=== PATIENT | female | born 1975 | race Caucasian/White ===

== ENCOUNTER 2017-05-29 15:02 | Emergency (ER) | payer MEDICARE, MEDICAID ==
--- OUTSIDE RECORDS SUMMARY | 2017-05-29 15:09 | XMS REPORT ---
Author [facility] Address [address] [place] [address] Care Team Providers Care Mason Tender Name Role Phone GABE SAL Unavailable PROBLEMS Type Condition ICD9-CM Code [id number] Code Onset Dates Condition Status SNOMED Code Problem Cerebrovascular accident (CVA), unspecified mechanism I63.9 Active 325774073 Problem Type 2 diabetes mellitus with other circulatory complications E11.59 Active 89187046 Problem Diabetic mononeuropathy associated with type 2 diabetes mellitus E11.41 Active 135038243 Problem Axillary hidradenitis suppurativa L73.2 Active 961558009 Problem [facility] current use of insulin Z79.4 Active 562463327 Problem Cervical vertebral fusion M43.22 Active 989363784 ALLERGIES Unknown Allergies SOCIAL HISTORY No smoking Hx information available PLAN OF CARE VITAL SIGNS MEDICATIONS Unknown Medications RESULTS No Results PROCEDURES No Known procedures IMMUNIZATIONS No Known Immunizations
--- OUTSIDE RECORDS SUMMARY | 2017-05-29 15:09 | XMS REPORT ---
Demographics Preferred Language Botswanan Marital Status Never Zoroastrianism Affiliation Unknown Race Other Race Ethnic Group Unknown Author Author Aurora Gallegos [facility] Address [address] [place], [place] [id number] Care Team Providers Care Incinerator Attendant Name Role Phone Aurora Gallegos PCP Unavailable Allergies and Adverse Reactions Name Reaction Notes No known drug allergy Plan of Treatment Planned Activity Comments Planned Date Planned Time Plan/Goal HEMOGLOBIN A1C 09/27/2016 12:00 AM CMP 09/27/2016 12:00 AM CBC W/ AUTO DIFF (RFLX MAN DIFF IF IND). 09/27/2016 12:00 AM LIPID PANEL 09/27/2016 12:00 AM heart murmur, h/o 1x meth use, s/p CVA Medications Active Name Start Date Estimated Completion Date SIG Comments Lantus Solostar 100 unit/mL (3 mL) subcutaneous insulin pen Inject 20 units q AM Xarelto 20 mg oral tablet take 1 tablet (20 mg) by oral route once daily with the evening meal gabapentin 300 mg oral capsule 09/27/2016 09/22/2017 take 1 capsule (300 mg) by oral route 3 times per day for 30 days amitriptyline 25 mg oral tablet 09/27/2016 09/22/2017 take 1 tablet (25 mg) by oral route once daily at bedtime for 30 days Humalog KwikPen 100 unit/mL subcutaneous insulin pen 09/27/2016 09/22/2017 Inject 5 units sub-q sliding scale 3 times a day lisinopril 10 mg oral tablet 09/27/2016 03/26/2017 take 1 tablet (10 mg) by oral route once daily for 30 days Problem List Not available. Vital Signs Date Time BP-Sys(mm[Hg] BP-[place](mm[Hg]) HR(bpm) RR(rpm) Temp WT HT HC BMI BSA BMI Percentile O2 Sat(%) 09/27/2016 4:10:00 PM 158 mmHg 89 mmHg 114 bpm 22 rpm 97.9 F 153 lbs 62 in 27.98 kg/m2 1.74 m2 97 % Social History Name Description Comments Tobacco Never smoker History of Procedures Not available. Results Summary Not available. History Of Immunizations Not available. 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 History of Encounters Visit Date Visit Type Provider 09/27/2016 Office visit Aurora Glalegos MD
--- OUTSIDE RECORDS SUMMARY | 2017-05-29 15:09 | XMS REPORT ---
Author [facility] Address [address] [place] [address] Care Team Providers Care Mounter Clarinets Name Role Phone GABE SAL Unavailable PROBLEMS Type Condition ICD9-CM Code [id number]-[id number] Code Onset Dates Condition Status SNOMED Code Problem Cerebrovascular accident (CVA), unspecified mechanism I63.9 Active 506187693 Problem Type 2 diabetes mellitus with other circulatory complications E11.59 Active 86384269 Problem Diabetic mononeuropathy associated with type 2 diabetes mellitus E11.41 Active 731510168 Problem Axillary hidradenitis suppurativa L73.2 Active 775115302 Problem [facility] current use of insulin Z79.4 Active 036417157 Problem Cervical vertebral fusion M43.22 Active 204297937 ALLERGIES Unknown Allergies SOCIAL HISTORY No smoking Hx information available PLAN OF CARE VITAL SIGNS MEDICATIONS Unknown Medications RESULTS No Results PROCEDURES No Known procedures IMMUNIZATIONS No Known Immunizations
--- OUTSIDE RECORDS SUMMARY | 2017-05-29 15:09 | XMS REPORT ---
Author Author Aurora Gallegos Organization [facility] Address [address] [place], [place] [address] Care Team Providers Care Manual Lathe Machinist Name Role Phone Aurora Gallegos PCP Unavailable Allergies and Adverse Reactions Name Reaction Notes morphine PENICILLINS Protonix SULFA (SULFONAMIDES) Plan of Treatment Planned Activity Comments Planned Date Planned Time Plan/Goal heart murmur, h/o 1x meth use, s/p CVA Medications Active Name Start Date Estimated Completion Date SIG Comments Lantus Solostar 100 unit/mL (3 mL) subcutaneous insulin pen Inject 20 units q AM gabapentin 300 mg oral capsule 09/27/2016 09/22/2017 take 1 capsule (300 mg) by oral route 3 times per day for 30 days amitriptyline 25 mg oral tablet 09/27/2016 09/22/2017 take 1 tablet (25 mg) by oral route once daily at bedtime for 30 days lisinopril 10 mg oral tablet 09/27/2016 03/26/2017 take 1 tablet (10 mg) by oral route once daily for 30 days Novolog Flexpen 100 unit/mL subcutaneous insulin pen 09/29/2016 09/24/2017 inject 5 units Sub-q with sliding scale TID for 30 days Xarelto 20 mg oral tablet 10/13/2016 04/11/2017 take 1 tablet (20 mg) by oral route once daily with the evening meal for 30 days Discontinued Name Start Date Discontinued Date SIG Comments Humalog KwikPen 100 unit/mL subcutaneous insulin pen 09/27/2016 09/29/2016 Inject 5 units sub-q sliding scale 3 times a day Problem List Description Status Onset Chronic kidney disease, stage 3 Active 10/17/2016 Vital Signs Date Time BP-Sys(mm[Hg] BP-Ivan[place](mm[Hg]) HR(bpm) RR(rpm) Temp WT HT HC BMI BSA BMI Percentile O2 Sat(%) 10/17/2016 9:25:00 AM 148 mmHg 85 mmHg 114 bpm 20 rpm 96.8 F 158 lbs 62 in 28.90 kg/m2 1.77 m2 97 % 09/27/2016 4:10:00 PM 158 mmHg 89 mmHg 114 bpm 22 rpm 97.9 F 153 lbs 62 in 27.9838 kg/m 1.7424 m 97 % Social History Name Description Comments Tobacco Never smoker History of Procedures Date Ordered Description Order Status 09/27/2016 12:00 AM ROUTINE VENIPUNCTURE Reviewed 09/27/2016 12:00 AM GLYCOSYLATED HEMOGLOBIN TEST Reviewed 09/27/2016 12:00 AM COMPREHEN METABOLIC PANEL Reviewed 09/27/2016 12:00 AM COMPLETE CBC W/AUTO DIFF WBC Reviewed 09/27/2016 12:00 AM LIPID PANEL Reviewed Results Summary Data and Description Results 09/27/2016 5:10 PM WBC 10.1 RBC 4.20 HGB 8.80 g/dLHCT 30.40 %MCV 72.0 fLMCH 21.0 pgMCHC 28.90 g/dLRDW SD 43 RDW CV 16.60 %MPV 11.60 fLPLT 318 NRBC# 0.00 NRBC% 0.0 %NEUT 60.80 %%LYMP 26.40 %%MONO 8.60 %%EOS 3.10 %%BASO 0.80 %#NEUT 6.14 #LYMP 2.66 #MONO 0.87 #EOS 0.31 #BASO 0.08 MANUAL DIFF NOT IND HGB A1C > 14.0 %Est Avg Glucose 380.9 mg/dLGLUCOSE 174.0 mg/dLSODIUM 138.0 mmol/ LPOTASSIUM 4.10 mmol/LCHLORIDE 101.0 mmol/LCO2 26.0 mmol/LBUN 31.0 mg/ dLCREATININE 1.70 mg/dLSGOT/AST 19.0 IU/LSGPT/ALT 24.0 IU/LALK PHOS 118.0 IU/ LTOTAL PROTEIN 6.30 g/dLALBUMIN 3.50 g/dLTOTAL BILI 0.20 mg/dLCALCIUM 9.20 mg/ dLAGE 39 GFR NonAA 33 GFR AA 40 eGFR 33 eGFR AA* 40 TRIGLYCERIDES 309.0 mg/ dLCHOLESTEROL 304.0 mg/dLHDL 38.0 mg/dLTOT CHOL/HDL 8.0 LDL (CALC) 204.0 mg/dL History Of Immunizations Not available. History of Past Illness Name Date of Onset Comments Closed head injury Hypertension CVA (cerebral vascular accident) 02/03/2016 left MCA distributionCarotid US normalHypercoagulable state labs drawn UTI (lower urinary tract infection) E.coli treated with cipro Hyperlipidemia 01/31/16: chol 222, tri 308, HDL 28, LDL 132, supposed to be on atorvastatin 20mg Cerebral palsy Aphasia Myocardial infarct, old Echo 01/2016: EF 55%, thrombus in left ventricular apex Bipolar disorder Schizophrenia Abnormal EKG 01/2016 Azotemia Internal carotid artery stenosis, bilateral 01/2016 Type 2 diabetes mellitus with diabetic neuropathy, with long-term current use of insulin A1C from 01/2016 was 11.5% Detached Retina Chronic kidney disease, stage 3 10/17/2016 Type 2 diabetes mellitus with diabetic mononeuropathy Sep 27 2016 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
--- OUTSIDE RECORDS SUMMARY | 2017-05-29 15:10 | XMS REPORT ---
Author [facility] Address [address] [place] [address] Care Team Providers Care Launch Leader Name Role Phone AGBE SAL Unavailable PROBLEMS Type Condition ICD9-CM Code ZIP70-TQ Code Onset Dates Condition Status SNOMED Code Problem Cerebrovascular accident (CVA), unspecified mechanism I63.9 Active 847901783 Problem Type 2 diabetes mellitus with other circulatory complications E11.59 Active 27210285 Problem Diabetic mononeuropathy associated with type 2 diabetes mellitus E11.41 Active 796497587 Problem Axillary hidradenitis suppurativa L73.2 Active 840998067 Problem shelter current use of insulin Z79.4 Active 035940583 Problem Cervical vertebral fusion M43.22 Active 796047232 ALLERGIES Unknown Allergies SOCIAL HISTORY No smoking Hx information available PLAN OF CARE VITAL SIGNS MEDICATIONS Unknown Medications RESULTS No Results PROCEDURES No Known procedures IMMUNIZATIONS No Known Immunizations
--- OUTSIDE RECORDS SUMMARY | 2017-05-29 15:10 | XMS REPORT ---
Author [facility] Address [address] [place] [address] Care Team Providers Care Hi Low Truck Driver Name Role Phone GABE SAL Unavailable PROBLEMS Type Condition ICD9-CM Code [id number] Code Onset Dates Condition Status SNOMED Code Problem Cerebrovascular accident (CVA), unspecified mechanism I63.9 Active 196347565 Problem Type 2 diabetes mellitus with other circulatory complications E11.59 Active 80765783 Problem Diabetic mononeuropathy associated with type 2 diabetes mellitus E11.41 Active 314080098 Problem Axillary hidradenitis suppurativa L73.2 Active 311409856 Problem care home current use of insulin Z79.4 Active 847873103 Problem Cervical vertebral fusion M43.22 Active 025617288 ALLERGIES Unknown Allergies SOCIAL HISTORY No smoking Hx information available PLAN OF CARE VITAL SIGNS MEDICATIONS Medication Instructions Dosage Frequency Start Date End Date Duration Status Xarelto 20 mg Orally Once a day 1 tablet with food 24h Active RESULTS No Results PROCEDURES No Known procedures IMMUNIZATIONS No Known Immunizations
--- OUTSIDE RECORDS SUMMARY | 2017-05-29 15:10 | XMS REPORT ---
Author Author GABE SAL [facility] Address [address] [place] [address] Care Team Providers Care Bank Officer Name Role Phone GABE SAL Unavailable PROBLEMS Type Condition ICD9-CM Code [id number] Code Onset Dates Condition Status SNOMED Code Problem Cervical vertebral fusion M43.22 Active 469798101 Problem Hypomagnesemia E83.42 Active 705469998 Problem Transient cerebral ischemia, unspecified type G45.9 Active 732889005 Problem Type 2 diabetes mellitus with diabetic polyneuropathy E11.42 Active 88964281 Problem Type 2 diabetes mellitus with other circulatory complications E11.59 Active 02590199 Problem Cerebrovascular accident (CVA), unspecified mechanism I63.9 Active 890536584 Problem Type 2 diabetes mellitus with unspecified diabetic retinopathy with macular edema E11.311 Active 79460865 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
--- OUTSIDE RECORDS SUMMARY | 2017-05-29 15:10 | XMS REPORT ---
Author [facility] Address [address] [place] [address] Care Team Providers Care Tarp Repairer Name Role Phone GABE SAL Unavailable PROBLEMS Type Condition ICD9-CM Code FFF51-[id number] Code Onset Dates Condition Status SNOMED Code Problem Cerebrovascular accident (CVA), unspecified mechanism I63.9 Active 411267073 Problem Type 2 diabetes mellitus with other circulatory complications E11.59 Active 91160280 Problem Diabetic mononeuropathy associated with type 2 diabetes mellitus E11.41 Active 899176498 Problem Axillary hidradenitis suppurativa L73.2 Active 487313889 Problem retirement current use of insulin Z79.4 Active 509650355 Problem Cervical vertebral fusion M43.22 Active 696758810 ALLERGIES Unknown Allergies SOCIAL HISTORY No smoking Hx information available PLAN OF CARE VITAL SIGNS MEDICATIONS Unknown Medications RESULTS No Results PROCEDURES No Known procedures IMMUNIZATIONS No Known Immunizations
--- OUTSIDE RECORDS SUMMARY | 2017-05-29 15:10 | XMS REPORT ---
Author Author [facility]ABE [facility] Address [address] [place] [address] Care Team Providers Care Survey Associate Name Role Phone GABE SAL Unavailable PROBLEMS Type Condition ICD9-CM Code LFL25-VX Code Onset Dates Condition Status SNOMED Code Assessment Diabetic mononeuropathy associated with type 2 diabetes mellitus E11.41 Mar, Active 274035164 Problem Cerebrovascular accident (CVA), unspecified mechanism I63.9 Active 336380989 Problem Type 2 diabetes mellitus with other circulatory complications E11.59 Active 11913027 Problem Diabetic mononeuropathy associated with type 2 diabetes mellitus E11.41 Active 897943471 Problem Axillary hidradenitis suppurativa L73.2 Active 694353835 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 Active 034173993 Problem Cervical vertebral fusion M43.22 Active 882968568 ALLERGIES Substance Reaction Event Type Date Status Sulfamethoxazole-Trimethoprim nausea,vomiting Drug Allergy Mar, Active Oxycodone HCl nausea,vomiting Drug Allergy Mar, Active Morphine Sulfate nausea Drug Allergy Mar, Active Codeine Sulfate nausea, vomiting Drug Allergy Mar, Active Cipro nausea,vomiting Drug Allergy Mar, Active anesthiesa vomiting Non Drug Allergy Mar, Active paper tape skin rash Non Drug Allergy Mar, Active SOCIAL HISTORY No smoking Hx information available PLAN OF CARE VITAL SIGNS Height 62 in 2016-04-18 Weight 158 lbs 2016-04-18 Heart Rate 86 bpm 2016-04-18 Respiratory Rate 18 2016-04-18 BMI 28.90 kg/m2 2016-04-18 Blood pressure systolic 118 mmHg 2016-04-18 Blood pressure diastolic 82 mmHg 2016-04-18 MEDICATIONS Medication Instructions Dosage Frequency Start Date End Date Duration Status Xarelto 20 MG Orally Once a day 1 tablet with food 24h Active Cyclobenzaprine HCl 10 MG Orally Three times a day 1 tablet 8h Active Sulindac 200 MG Orally Twice a day 1 tablet with food 12h Active Lantus SoloStar 100 UNIT/ML Active Omeprazole 40 MG Orally Once a day 1 capsule 24h Active Gabapentin 300 MG Orally Three times a day 1 capsule 8h Active Amitriptyline HCl 25 MG Orally Once a day 1 tablet 24h Active Hibiclens 4 % Wash entire body twice weekly and rinse Mar, Mar, 6 months Active Humalog 100 UNIT/ML Active RESULTS No Results PROCEDURES Procedure Date Ordered Related Diagnosis Body Site [facility] VISIT ESTABLISHED PATIENT Apr 18, 2016 Office Visit, Est Pt., Level 3 Apr 18, 2016 IMMUNIZATIONS No Known Immunizations
--- OUTSIDE RECORDS SUMMARY | 2017-05-29 15:12 | XMS REPORT ---
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 Z79.4 Active 763316059 Problem Cervical vertebral fusion M43.22 Active 649991927 Problem Transient cerebral ischemia, unspecified type G45.9 Active 249917980 Problem Hypomagnesemia E83.42 Active 198402896 Problem Cerebrovascular accident (CVA), unspecified mechanism I63.9 Active 555665970 Problem Type 2 diabetes mellitus with other circulatory complications E11.59 Active 20031802 Problem Type 2 diabetes mellitus with diabetic polyneuropathy E11.42 Active 27413512 Problem Type 2 diabetes mellitus with unspecified diabetic retinopathy with macular edema E11.311 Active 09910183 ALLERGIES Unknown Allergies SOCIAL HISTORY No smoking Hx information available PLAN OF CARE VITAL SIGNS MEDICATIONS Medication Instructions Dosage Frequency Start Date End Date Duration Status Humalog 100 UNIT/ML Subcutaneous per sliding scale three times a day 5 units Active Lantus SoloStar 100 UNIT/ML Subcutaneous daily in the morning 20 units Active RESULTS No Results PROCEDURES No Known procedures IMMUNIZATIONS No Known Immunizations
--- OUTSIDE RECORDS SUMMARY | 2017-05-29 15:12 | XMS REPORT | Continuity of Care Document ---
Author Author [facility] Organization [facility] Address [address] [place] [address] Phone Unavailable Care Team Providers Care Clamp Carrier Operator Name Role Phone SHLOMO HILL MD PCP Advance Directives Directive Response Recorded Date/Time Advance Directives No 04/09/16 9:28pm Advance Directive on File No 04/09/16 9:15pm Durable POA for HC No 04/09/16 9:28pm Power of Printing Assistant No 04/09/16 9:28pm Organ Donor No 04/09/16 9:28pm Living Will No 04/09/16 9:28pm Chief Complaint and Reason for Visit Chief Complaint General Complaint Reason for Visit Type 2 diabetes mellitus with hyperglycemia Problems Active Problems Medical Problem Onset Date Status Type 2 diabetes mellitus with hyperglycemia Unknown Acute Medications Current Home Medications Medication Dose Units Route Directions Days/Qty Instructions Start Date Insulin Glargine,Hum.rec.anlog 100 Unit/1 Ml 28 Units Sub-Q Once A Day 3 04/09/16 Insulin Regular, Human 500 Unit/1 Ml 5 Unit Sub-Q Continuous for Diabetes 04/09/16 Insulin Glargine 100 Unit/1 Ml 28 Sub-Q Once A Day for Diabetes Social History Social History Problem Response Recorded Date/Time Smoking Status Never smoker 04/09/2016 10:08pm Smoked in the last 12 months? No 04/09/2016 10:08pm Do you dip or chew tobacco? No 04/09/2016 10:08pm Approx how many cigs per day? 0 04/09/2016 10:08pm Level of Dependence Low 04/09/2016 10:08pm Former smoker, last day smoked? na 04/09/2016 10:08pm Query Response Start Date Stop Date Smoking Status Never smoker Hospital Discharge Instructions No hospital discharge instructions. Plan of Care Discharge Date 04/09/16 10:35pm Disposition 01 D/C HOME Condition at Discharge Stable Instructions/Education Provided Diabetes Mellitus Type 2 in Adults (ED) Forms Provided ER Discharge Phone Call Check Prescriptions See Medication Section Referrals SHLOMO HILL MD - Additional Instructions/Education take Lantus as usual Reference Links Reference Text INTRODUCTION Type 2 diabetes mellitus is a disorder that disrupts the way your body uses glucose (sugar). All the cells in your body need sugar to work normally. Sugar gets into the cells with the help of a hormone called insulin. If there is not enough insulin, or if the body stops responding to insulin, sugar builds up in the blood. This is what happens to people with diabetes mellitus. There are two different types of diabetes mellitus. In type 1 diabetes mellitus, the problem is that the pancreas (an organ in the abdomen) does not make enough insulin. In type 2 diabetes mellitus, the pancreas does not make enough insulin (figure 1), the body becomes resistant to normal or even high levels of insulin , or both. This causes high blood glucose (blood sugar) levels, which can cause problems if untreated. In the [place], [place], and [place], about 90 percent of all people with diabetes have type 2 diabetes. Type 2 diabetes is a chronic medical condition that requires regular monitoring and treatment throughout your life. Treatment includes lifestyle changes, self- care measures, and sometimes medications. Fortunately, these treatments can keep blood sugar levels close to normal and minimize the risk of developing complications. THE IMPACT OF DIABETES Being diagnosed with type 2 diabetes can be a frightening and overwhelming experience, and you likely have questions about why it developed, what it means for your long-term health, and how it will affect your everyday life. For most people, the first few months after being diagnosed are filled with emotional highs and lows. If you have just been diagnosed with diabetes, you and your family should use this time to learn as much as possible so that caring for your diabetes (including testing your blood sugar, going to medical appointments, and taking your medications) becomes a part of your daily routine. (See "Patient education: Self-blood glucose monitoring in diabetes mellitus (Beyond the Basics)".) In addition, you should talk to your doctor or nurse about resources that are available for medical as well as psychological support. These may include group classes, meetings with a crane helper, social worker assistant, or nurse educator, and other educational resources such as books, web sites, or magazines. Several of these resources are listed below. (See 'Where to get more information' below.) Despite the risks associated with type 2 diabetes, most people can lead active lives and continue to enjoy the foods and activities that they previously enjoyed. Diabetes does not mean an end to "special occasion" foods like birthday cake, and most people with diabetes can enjoy exercise in almost any form. (See "Patient education: Type 2 diabetes mellitus and diet (Beyond the Basics)" and "Patient education: Diabetes mellitus type 2: Alcohol, exercise, and medical care (Beyond the Basics)".) CAUSES OF TYPE 2 DIABETES Type 2 diabetes is thought to be caused by a combination of genetic and environmental factors. (See "Pathogenesis of type 2 diabetes mellitus" and "Risk factors for type 2 diabetes mellitus".) Genetic causes Many people with type 2 diabetes have a family member with either type 2 diabetes or other medical problems associated with diabetes, such as high cholesterol levels, high blood pressure, or obesity. The lifetime risk of developing type 2 diabetes is 5 to 10 times higher in first-degree relatives (sister, brother, son, daughter) of a person with diabetes compared with a person with no family history of diabetes. The likelihood of developing type 2 diabetes is greater in certain ethnic groups, such as people of , , and descent. Environmental conditions Environmental factors such as what you eat and how active you are, combined with genetic causes, affect the risk of developing type 2 diabetes. A small number (about 3 to 5 percent) of women develop diabetes during , called "gestational diabetes." Gestational diabetes is similar to type 2 diabetes, but usually resolves after the woman delivers her baby. Women who have gestational diabetes are at increased risk for developing type 2 diabetes later in life. (See "Patient education: Gestational diabetes mellitus (Beyond the Basics)".) TYPE 2 DIABETES DIAGNOSIS The diagnosis of diabetes is based upon your symptoms and the results of blood tests. (See "Clinical presentation and diagnosis of diabetes mellitus in adults".) Symptoms Before being diagnosed with type 2 diabetes, most people have no symptoms at all. In those who do have symptoms, the most common include: ?Needing to urinate frequently ?Feeling thirsty ?Blurred vision Laboratory tests Several blood tests are used to measure blood glucose levels, the primary test for diagnosing diabetes. ?Random blood sugar test For a random blood sugar test, you can have blood drawn at any time throughout the day, regardless of when you last ate. If your blood sugar is 200 mg/dL (11.1 mmol/L) or higher and you have symptoms of high blood sugar (see 'Symptoms' above), it is likely that you have diabetes. ?Fasting blood sugar test A fasting blood sugar test is a blood test done after not eating or drinking for 8 to 12 hours (usually overnight). A normal fasting blood sugar level is less than 100 mg/dL (5.55 mmol/L). ?Hemoglobin A1C test The "A1C" blood test measures your average blood sugar level over the past two to three months. Normal values for A1C are 4 to 5.6 percent. The A1C test can be done at any time of day (before or after eating). ?Oral glucose tolerance test Oral glucose tolerance testing (OGTT) is a test that involves drinking a special glucose solution (usually orange or cola flavored). Your blood sugar level is tested before you drink the solution, and then again one and two hours after drinking it. Criteria for diagnosis The following criteria are used to classify your blood sugar levels as normal, increased risk (blood sugar levels that are higher than normal and indicate a risk of future diabetes), or diabetes. Normal Fasting blood sugar less than 100 mg/dL (5.55 mmol/L). Categories of increased risk ?Impaired fasting glucose is defined as a fasting blood sugar level between 100 and 125 mg/dL (5.6 to 6.9 mmol/L). ?Impaired glucose tolerance is defined as a blood sugar level of 140 to 199 mg/dL two hours after an oral glucose tolerance test. ?A1C persons with 5.7 to 6.4 percent are at highest risk, although there is a continuum of increasing risk across the entire spectrum of subdiabetic A1C levels. At least 50 percent of people with impaired glucose tolerance eventually develop type 2 diabetes. Even if they don't develop diabetes, these people are at increased risk of heart disease. Impaired glucose tolerance is very common; about 11 percent of all people between the ages of 20 and 74 have impaired glucose tolerance. Diabetes mellitus A person is considered to be diabetic if he or she has one or more of the following: ?Symptoms of diabetes (see 'Symptoms' above) and a random blood sugar of 200 mg/dL (11.1 mmol/L) or higher ?A fasting blood sugar level of 126 mg/dL (7.0 mmol/L) or higher ?A blood sugar of 200 mg/dL (11.1 mmol/L) or higher two hours after an oral glucose tolerance test ?An A1C of 6.5 percent or higher The blood tests must be repeated on another day to confirm the diagnosis of diabetes. Type 1 versus type 2 diabetes Doctors can usually tell whether a person has type 1 or type 2, but there are situations when the diagnosis is difficult to determine. In such cases, doctors often run additional blood tests. TYPE 2 DIABETES TREATMENT A full discussion of the treatment for type 2 diabetes is available separately. (See "Patient education: Diabetes mellitus type 2: Treatment (Beyond the Basics)" and "Patient education: Diabetes mellitus type 2: Insulin treatment (Beyond the Basics)" and "Patient education: Hypoglycemia (low blood sugar) in diabetes mellitus (Beyond the Basics)".) TYPE 2 DIABETES COMPLICATIONS Complications of type 2 diabetes can be related to the disease itself or to the treatments used to manage diabetes. (See "Patient education: Preventing complications in diabetes mellitus (Beyond the Basics)".) AND DIABETES Women with type 2 diabetes are usually able to become and have a healthy baby. A full discussion of diabetes in is available separately. (See "Patient education: Care during for women with type 1 or 2 diabetes mellitus (Beyond the Basics)".) WHERE TO GET MORE INFORMATION Your healthcare provider is the best source of information for questions and concerns related to your medical problem. This article will be updated as needed on our web site ( [email or web address]). Related topics for patients, as well as selected articles written for healthcare professionals, are also available. Some of the most relevant are listed below. Patient level information [employer] offers two types of patient education materials. Functional Status Query Response Date Recorded Activities of Daily Living Performs w/o Assistance April 09, 2016 10:09pm Cognitive Function Moderately Impaired April 09, 2016 10:09pm Allergies, Adverse Reactions, Alerts Allergen Type Severity Reaction Status Last Updated No Known Drug Allergies ([id number]) Allergy Unknown Active 04/09/16 Immunizations No immunization records. Vital Signs Acute Vital Signs Vital Response Date/Time Temperature (Fahrenheit) 98 degrees F (97.6 - 99.5) 04/09/2016 10:30pm Temperature (Calculated Celsius) 36.6696 degrees C (36.4 - 37.5) 04/09/2016 10:30pm Temperature Source Temporal Artery Scan 04/09/2016 10:30pm Pulse Pulse Ox Pulse Rate (adult) 68 beats per minute (60 - 90) 04/09/2016 10:30pm Oxygen Saturation Respiratory Rate 20 breaths per minute (12 - 24) 04/09/2016 10:30pm O2 Sat by Pulse Oximetry 98 % (90 - 100) 04/09/2016 10:30pm Blood Pressure 184/88 mm Hg 04/09/2016 10:30pm Blood Pressure Mean 120 mm Hg 04/09/2016 10:30pm Height 5 ft 5 in Weight 175 lb Body Mass Index 29.1 kg/m^2 Results No known relevant diagnostic tests, laboratory data and/or discharge summary. Procedures No known history of procedures. Encounters Encounter Location Arrival/Admit Date Discharge/Depart Date Attending Provider Departed Emergency Room [facility] 04/09/16 9:15pm 04/09/16 10: 35pm SHLOMO HILL MD Recent Diagnosis
--- OUTSIDE RECORDS SUMMARY | 2017-05-29 15:12 | XMS REPORT ---
Author Author JONELLEGABE Organization [facility] Address [address] [place] [address] Care Team Providers Care Dental Billing Specialist Name Role Phone GABE SAL Unavailable PROBLEMS Type Condition ICD9-CM Code [id number] Code Onset Dates Condition Status SNOMED Code Assessment Type 2 diabetes mellitus with other circulatory complications E11.59 Mar, Active 373146040 Problem Cerebrovascular accident (CVA), unspecified mechanism I63.9 Active 343199397 Problem Type 2 diabetes mellitus with other circulatory complications E11.59 Active 06591731 Problem Diabetic mononeuropathy associated with type 2 diabetes mellitus E11.41 Active 592961366 Problem Axillary hidradenitis suppurativa L73.2 Active 795552994 Problem shelter current use of insulin Z79.4 Active 895816822 Problem Cervical vertebral fusion M43.22 Active 431404057 ALLERGIES Substance Reaction Event Type Date Status [...] OF CARE VITAL SIGNS Height 62 in 2016-04-14 Weight 158 lbs 2016-04-14 Heart Rate 98 bpm 2016-04-14 Respiratory Rate 16 2016-04-14 BMI 28.90 kg/m2 2016-04-14 Blood pressure systolic 124 mmHg 2016-04-14 Blood pressure diastolic 78 mmHg 2016-04-14 MEDICATIONS Medication Instructions Dosage Frequency Start Date End Date Duration Status Sulindac 200 MG Orally Twice a day 1 tablet with food 12h Active Omeprazole 40 MG Orally Once a day 1 capsule 24h Active Gabapentin 300 MG Orally Three times a day 1 capsule 8h Active Amitriptyline HCl 25 MG Orally Once a day 1 tablet 24h Active Lantus SoloStar 100 UNIT/ML Active Hibiclens 4 % Wash entire body twice weekly and rinse Mar, Mar, 6 months Active Cyclobenzaprine HCl 10 MG Orally Three times a day 1 tablet 8h Active Humalog 100 UNIT/ML Active Xarelto 20 MG Orally Once a day 1 tablet with food 24h Active RESULTS Name Result Date Reference Range A1C (IN HOUSE) 2016-04-14 A1C IN HOUSE 7.7 4.3 - 5.6 % Previous A1c na Lot [id number] Exp date 83256 PROCEDURES Procedure Date Ordered Related Diagnosis Body Site GLYCATED HEMOGLOBIN TEST Apr 14, 2016 [facility] VISIT NEW PATIENT Apr 14, 2016 Office Visit, New Pt., Level 4 Apr 14, 2016 IMMUNIZATIONS No Known Immunizations
--- OUTSIDE RECORDS SUMMARY | 2017-05-29 15:14 | XMS REPORT ---
Author Author GABE SAL Organization [employer] Address Unknown Phone Unavailable Care Team Providers Care Fiscal Assistant Name Role Phone GABE SAL CP Unavailable Allergies No Known Allergies Problems Problem Type Condition Code Onset Dates Condition Status Problem Type 2 diabetes mellitus with other circulatory complications E11.59 Active Problem long-term current use of insulin Z79.4 Active Problem Cerebrovascular accident (CVA), unspecified mechanism I63.9 Active Problem Axillary hidradenitis suppurativa L73.2 Active Problem Cervical vertebral fusion M43.22 Active Problem Diabetic mononeuropathy associated with type 2 diabetes mellitus E11.41 Active Medications Medication Code System Code Instructions Start Date End Date Status Dosage Xarelto [facility] [address]-12 20 mg Orally Once a day 1 tablet with food Results No Known Results Summary Purpose [employer] Submission
--- OUTSIDE RECORDS SUMMARY | 2017-05-29 15:14 | XMS REPORT | Continuity of Care Document ---
Author Author [facility] Address Unknown Phone Unavailable Allergies Medications Problems Procedures Results Encounters ACCT No. Visit Date/Time Discharge Status Pt. Type Provider Facility Loc./Unit Complaint [id number] 10/17/2016 10:23:57 10/17/2016 23: 59:59 [facility] Outpatient Aurora Gallegos [id number] 09/28/2016 09:45:41 09/28/2016 23: 59:59 [facility] Outpatient Aurora Gallegos
--- OUTSIDE RECORDS SUMMARY | 2017-05-29 15:14 | XMS REPORT ---
Author Author JR SILVA [facility] Address [address] [place] [address] Care Team Providers Care Distance Education Teacher Name Role Phone JR SILVA Unavailable PROBLEMS Type Condition ICD9-CM Code TAD88-EW Code Onset Dates Condition Status SNOMED Code Assessment Skin tag of labia N90.89 Mar, Active 459882288 Assessment Hidradenitis suppurativa L73.2 Mar, Active 48307269 Assessment Cutaneous candidiasis B37.2 Mar, Active 69800046 Problem Cerebrovascular accident (CVA), unspecified mechanism I63.9 Active 800247174 Problem Type 2 diabetes mellitus with other circulatory complications E11.59 Active 06975533 Problem Diabetic mononeuropathy associated with type 2 diabetes mellitus E11.41 Active 971257427 Problem Axillary hidradenitis suppurativa L73.2 Active 566521048 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 Active 429944933 Problem Cervical vertebral fusion M43.22 Active 311551088 ALLERGIES Substance Reaction Event Type Date Status [...] OF CARE VITAL SIGNS Height 62 in 2016-04-27 Weight 153 lbs 2016-04-27 Heart Rate 82 bpm 2016-04-27 Respiratory Rate 16 2016-04-27 BMI 27.98 kg/m2 2016-04-27 Blood pressure systolic 120 mmHg 2016-04-27 Blood pressure diastolic 72 mmHg 2016-04-27 MEDICATIONS Medication Instructions Dosage Frequency Start Date End Date Duration Status Humalog 100 UNIT/ML Active Lantus SoloStar 100 UNIT/ML Active Omeprazole 40 MG Orally Once a day 1 capsule 24h Active Hibiclens 4 % Wash entire body twice weekly and rinse Mar, Mar, 6 months Active Cephalexin 500 MG Orally 3 times a day 1 capsule 8h Mar, Apr, 07 days Active Sulindac 200 MG Orally Twice a day 1 tablet with food 12h Active Gabapentin 300 MG Orally Three times a day 1 capsule 8h Active Xarelto 20 mg Orally Once a day 1 tablet with food 24h Active Cyclobenzaprine HCl 10 MG Orally Three times a day 1 tablet 8h Active Nystatin 493355 UNIT/GM Externally Twice a day until rash resolves 1 application to affected area Mar, Active Amitriptyline HCl 25 MG Orally Once a day 1 tablet 24h Active RESULTS No Results PROCEDURES Procedure Date Ordered Related Diagnosis Body Site [facility] VISIT ESTABLISHED PATIENT Apr 27, 2016 Office Visit, Est Pt., Level 3 Apr 27, 2016 IMMUNIZATIONS No Known Immunizations
[2017-05-30] MEDS ORDERED: INSU100I29 (13:18)
[2017-05-30] MEDS ORDERED: ATOR40TA70 (13:18)
[2017-05-30] MEDS ORDERED: VALP250C3 (13:18)
[2017-05-30] MEDS ORDERED: LISI10TA2 (13:18)
[2017-05-30] MEDS ORDERED: ONDA4TAB8 SL (16:31)
== END 2017-05-29 18:39 | disposition left against medical advice (07) ==
LOC: ER 15:06
DX: R07.9 Chest pain, unspecified (principal); G43.909 Migraine, unspecified, not intractable, without status migrainosus; M54.9 Dorsalgia, unspecified; R68.83 Chills (without fever)

== ENCOUNTER 2017-05-30 12:35 | Emergency (ER) | payer MEDICARE, MEDICAID ==
[~2017-05-30] VITALS: Ht 157.5 cm; Wt 66.2 kg
--- OUTSIDE RECORDS SUMMARY | 2017-05-30 12:48 | XMS REPORT | Continuity of Care Document ---
Author Author [facility] Address Unknown Phone Unavailable Allergies Medications Problems Procedures Results Encounters ACCT No. Visit Date/Time Discharge Status Pt. Type Provider Facility Loc./Unit Complaint [id number] 10/17/2016 10:23:57 10/17/2016 23: 59:59 [facility] Outpatient Aurora Gallegos [id number] 09/28/2016 09:45:41 09/28/2016 23: 59:59 [facility] Outpatient Aurora Gallegos
[2017-05-30] MEDS ORDERED: NS IV 1000 ML 1,000 ML IV ONE (13:07)
[2017-05-30] MEDS ORDERED: ONDANSETRON 4 MG/2 ML (SDV) Z0FRAN IVP ONE (13:15)
[2017-05-30] MEDS ORDERED: LISI10TA2 (13:18)
[2017-05-30] MEDS ORDERED: VALP250C3 (13:18)
[2017-05-30] MEDS ORDERED: INSU100I29 (13:18)
[2017-05-30] MEDS ORDERED: ATOR40TA70 (13:18)
--- NOTE | 2017-05-30 13:43 | ED Chest Pain ---
General Chief Complaint: Chest Pain Stated Complaint: CHEST DISCOMFORT--X 3-4 DAYS Nursing Triage Note: ARRIVED VIA AMB TO ROOM 09. COMPLAINS OF CHEST PAIN ALONG WITH CHILLS AND DIARRHEA X3 DAYS. Nursing Sepsis Screen: No Definite Risk Source: patient Exam Limitations: no limitations History of Present Illness Time seen by provider: 12:52 Initial Comments This 41-year-old woman presents to the emergency room with complaints of right sided chest pain that radiates to her back and right shoulder. Pain has been constant for 3-4 days. She also reports hands have been cramping and she has felt short of breath. She denies cough or fever but has had chills. She reports having nausea and diarrhea for 5 or 6 days. She checked into the emergency room yesterday but left without being seen due to a long wait time. She is a patient of Dr. Jaimie Neely. She is a diabetic who uses insulin. She also reports having history of stroke and seizure disorder. Allergies and Home Medications Allergies Coded Allergies: adhesive tape (Verified Allergy, Unknown, 05/30/17) Paper tape Penicillins (Verified Adverse Reaction, Unknown, NAUSEA, 05/30/17) lorazepam (Verified Adverse Reaction, Unknown, NAUSEA, 05/30/17) metformin (Verified Adverse Reaction, Unknown, NAUSEA, 05/30/17) morphine (Verified Adverse Reaction, Unknown, NAUSEA, 05/30/17) sulfamethoxazole (Verified Adverse Reaction, Unknown, NAUSEA, 05/30/17) trimethoprim (Verified Adverse Reaction, Unknown, NAUSEA, 05/30/17) Home Medications Atorvastatin Calcium 40 Mg Tablet, (Reported) Insulin Detemir 100 Unit/1 Ml Insuln.pen, (Reported) Lisinopril 10 Mg Tablet, (Reported) Ondansetron 4 Mg Tab.rapdis, 4 MG SL Q4H PRN for NAUSEA/VOMITING-1ST LINE, #10 Prescribed by: EDMUND SELLERS on 05/30/17 1631 Valproic Acid 250 Mg Capsule, (Reported) Review of Systems Constitutional: no symptoms reported EENTM: No Symptoms Reported Respiratory: See HPI Cardiovascular: See HPI Gastrointestinal: See HPI Genitourinary: No Symptoms Reported Musculoskeletal: no symptoms reported Skin: no symptoms reported Psychiatric/Neurological: No Symptoms Reported Endocrine: No Symptoms Reported Hematologic/Lymphatic: No Symptoms Reported Past Wvrohjb-Agdxdj-Hivokh Hx Patient Social History Recent Foreign Travel: No Contact w/Someone Who Travel: No Recent Infectious Disease Expo: No Surgeries History of Surgeries: Yes Surgeries: Orthopedic (neck) Respiratory History of Respiratory Disorde: No Cardiovascular History of Cardiac Disorders: Yes Cardiac Disorders: Hypertension Neurological History of Neurological Disord: Yes Neurological Disorders: Neuropathy, Seizure Disorder, Stroke Genitourinary History of Genitourinary Disor: Yes Genitourinary Disorders: Renal Failure Gastrointestinal History of Gastrointestinal Di: No Musculoskeletal History of Musculoskeletal Dis: No Endocrine History of Endocrine Disorders: Yes Endocrine Disorders: Diabetes, Insulin dep Cancer History of Cancer: No Psychosocial History of Psychiatric Problem: No Integumentary History of Skin or Integumenta: No Physical Exam Vital Signs Vital Sign - Last 12Hours 05/30/17 12:50 Temp 98.0 Pulse 105 Resp 18 B/P (MAP) 141/91 Pulse Ox 97 Capillary Refill : Less Than 3 Seconds General Appearance: No Apparent Distress, WD/WN HEENT: PERRL/EOMI, Normal ENT Inspection Respiratory: Chest Non Tender, Lungs Clear, Normal Breath Sounds, No Accessory Muscle Use, No Respiratory Distress Cardiovascular: Regular Rate, Rhythm, No Edema, No Murmur, Tachycardia Gastrointestinal: Normal Bowel Sounds, Soft, Tenderness (epigastrium and right upper quadrant) Extremity: Normal Capillary Refill, Normal Inspection, Non Tender, No Calf Tenderness, No Pedal Edema, Other (negative Kami) Neurologic/Psychiatric: Alert, Oriented x3, No Motor/Sensory Deficits, Normal Mood/Affect, top collar baster II-XII Norm as Tested Skin: Normal Color, Warm/Dry Progress/Results/Core Measures Results/Orders Lab Results Laboratory Tests Test 05/30/17 13:35 05/30/17 14:50 Range/Units White Blood Count 9.5 4.3-11.0 10^3/uL Red Blood Count 4.25 L 4.35-5.85 10^6/uL Hemoglobin 11.7 11.5-16.0 G/DL Hematocrit 35 35-52 % Mean Corpuscular Volume 83 80-99 FL Mean Corpuscular Hemoglobin 28 25-34 PG Mean Corpuscular Hemoglobin Concent 33 32-36 G/DL Red Cell Distribution Width 12.7 10.0-14.5 % Platelet Count 263 130-400 10^3/uL Mean Platelet Volume 10.4 7.4-10.4 FL Neutrophils (%) (Auto) 59 42-75 % Lymphocytes (%) (Auto) 29 12-44 % Monocytes (%) (Auto) 8 0-12 % Eosinophils (%) (Auto) 4 0-10 % Basophils (%) (Auto) 1 0-10 % Neutrophils # (Auto) 5.6 1.8-7.8 X 10^3 Lymphocytes # (Auto) 2.7 1.0-4.0 X 10^3 Monocytes # (Auto) 0.7 0.0-1.0 X 10^3 Eosinophils # (Auto) 0.3 0.0-0.3 10^3/uL Basophils # (Auto) 0.1 0.0-0.1 10^3/uL D-Dimer 0.53 H 0.00-0.49 UG/ML Sodium Level 140 135-145 MMOL/L Potassium Level 4.9 3.6-5.0 MMOL/L Chloride Level 104 98-107 MMOL/L Carbon Dioxide Level 27 21-32 MMOL/L Anion Gap 9 5-14 MMOL/L Blood Urea Nitrogen 43 H 7-18 MG/DL Creatinine 1.55 H 0.60-1.30 MG/DL Estimat Glomerular Filtration Rate 37 BUN/Creatinine Ratio 28 Glucose Level 108 H 70-105 MG/DL Calcium Level 9.1 8.5-10.1 MG/DL Total Bilirubin 0.2 0.1-1.0 MG/DL Aspartate Amino Transf (AST/SGOT) 13 5-34 U/L Alanine Aminotransferase (ALT/SGPT) 10 0-55 U/L Alkaline Phosphatase 98 40-136 U/L Troponin I < 0.30 <0.30 NG/ML Total Protein 6.4 6.4-8.2 GM/DL Albumin 3.3 3.2-4.5 GM/DL Lipase 7 L 8-78 U/L Serum Test, Qualitative NEGATIVE NEGATIVE Urine Color YELLOW Urine Clarity CLEAR Urine pH 8 5-9 Urine Specific [place] 1.010 L 1.016-1.022 Urine Protein 3+ H NEGATIVE Urine Glucose (UA) NEGATIVE NEGATIVE Urine Ketones NEGATIVE NEGATIVE Urine Nitrite NEGATIVE NEGATIVE Urine Bilirubin NEGATIVE NEGATIVE Urine Urobilinogen NORMAL NORMAL MG/DL Urine Leukocyte Esterase 1+ H NEGATIVE Urine RBC (Auto) 3+ H NEGATIVE Urine RBC RARE /HPF Urine WBC 2-5 /HPF Urine Squamous Epithelial Cells 5-10 /HPF Urine Crystals NONE /LPF Urine Bacteria FEW H /HPF Urine Casts NONE /LPF Urine Mucus NEGATIVE /LPF Urine Culture Indicated NO Urine Opiates Screen NEGATIVE NEGATIVE Urine Oxycodone Screen NEGATIVE NEGATIVE Urine Methadone Screen NEGATIVE NEGATIVE Urine Propoxyphene Screen NEGATIVE NEGATIVE Urine Barbiturates Screen NEGATIVE NEGATIVE Ur Tricyclic Antidepressants Screen NEGATIVE NEGATIVE Urine Phencyclidine Screen NEGATIVE NEGATIVE Urine Amphetamines Screen NEGATIVE NEGATIVE Urine Methamphetamines Screen NEGATIVE NEGATIVE Urine Benzodiazepines Screen NEGATIVE NEGATIVE Urine Cocaine Screen NEGATIVE NEGATIVE Urine Cannabinoids Screen NEGATIVE NEGATIVE My Orders Orders - EDMUND BARKER MD Cbc With Automated Diff (05/30/17 13:07) Comprehensive Metabolic Panel (05/30/17 13:07) Drug Screen Stat (Urine) (05/30/17 13:07) Hcg,Qualitative Serum (05/30/17 13:07) Lipase (05/30/17 13:07) Troponin I (05/30/17 13:07) Ua Culture If Indicated (05/30/17 13:07) Saline Lock/Iv-Start (05/30/17 13:07) Ekg Tracing (05/30/17 13:07) Monitor-Rhythm Ecg Trace Only (05/30/17 13:07) Chest Pa/Lat (2 View) (05/30/17 13:07) Ns Iv 1000 Ml (Sodium Chloride 0.9%) (05/30/17 13:07) Ondansetron Injection (Zofran Injectio (05/30/17 13:15) Us Gallbladder [id number] (05/30/17 14:50) Fibrin Degradation Products (05/30/17 15:42) Medications Given in ED Current Medications Medications Dose Ordered Sig/Jamey Route Start Time Stop Time Status Last Admin Dose Admin Ondansetron HCl 4 mg ONCE ONCE IVP 05/30/17 13:15 05/30/17 13:16 DC 05/30/17 13:38 4 MG Sodium Chloride 1,000 ml @ 0 mls/hr Q0M ONCE IV 05/30/17 13:07 05/30/17 13:15 DC 05/30/17 13:38 1,000 MLS/HR Vital Signs/I&O Vital Sign - Last 12Hours 05/30/17 05/30/17 12:50 16:37 Temp 98.0 Pulse 105 97 Resp 18 18 B/P (MAP) 141/91 Pulse Ox 97 98 Blood Pressure Mean: 108 Progress Note #1: Time: 13:34 Progress Note Patient was seen and examined and workup is underway. Patient will be evaluated for chest pain. If this workup is unremarkable, consideration for gallbladder ultrasound will be given. Patient was mildly tachycardic. A liter of IV fluids is being administered. Zofran was also be administered for nausea. Progress Note #2: Time: 16:04 Progress Note Patient's gallbladder ultrasound was positive for stones but no cholecystitis. This does not completely explain the pain in the right upper chest. Patient was noted be tachycardic on initial assessment. Her heart rate was still in the 90s after a liter of IV fluids. She is concerned about possible pulmonary embolus due to her prior history of stroke. I discussed further workup to possibly include d-dimer. Patient chose to proceed with d-dimer testing which was mildly elevated. Unfortunately, CT angiogram cannot be performed due to patient's renal function. I discussed the case again with patient and with Dr. Neely. The right-sided chest pain could be referred pain from the gallbladder. Her d-dimer was very marginally elevated. In this context without history of smoking, leg symptoms, or prior DVT, the likelihood of a DVT is very low. Dr. Neely and patient are agreeable to monitoring and following up in the clinic at 11 o'clock tomorrow. Patient has strict instructions to return to the ER if symptoms worsen. ECG Initial ECG Impression Date: May 30, 2017 Initial ECG Impression Time: 13:38 Initial ECG Rate: 91 Initial ECG Rhythm: Normal Sinus Initial ECG Intervals: Normal Initial ECG Impression: Normal Comment Normal sinus rhythm with no ST elevation or depression. No abnormal intervals or axis deviation. Diagnostic Imaging Diagonstic Imaging: Xray Plain Films/CT/US/NM/MRI: chest Comments Chest x-ray viewed by me and report reviewed. See report below: NAME: NEIL MARES [facility] REC#: [id number] PT STATUS: DEP ER : 1975 PHYSICIAN: EDMUND BARKER MD ADMIT DATE: 05/30/17/ER Signed Date of Exam: 05/30/17 CHEST PA/LAT (2 VIEW) INDICATION: Chest pain, chills and diarrhea PA and lateral views of the chest are obtained. COMPARISON: No previous study is available for comparison at this time. FINDINGS: Heart size and pulmonary vasculature are within normal limits, and the lungs are clear, bilaterally. IMPRESSION: Unremarkable chest. Dictated by: Dictated on workstation # [id number] Dict: 05/30/17 1430 Trans: 05/30/17 170 Interpreted by: AURA DELGADO MD Electronically signed by: AURA DELGADO MD 05/30/171708 Diagonstic Imaging: Ultrasound Comments Gallbladder ultrasound report reviewed. See report below: NAME: NEIL MARES [facility] REC#: [id number] PT STATUS: REG ER : 1975 PHYSICIAN: EDMUND BARKER MD ADMIT DATE: 05/30/17/ER Signed Date of Exam: 05/30/17 US GALLBLADDER [id number] PROCEDURE: US Gallbladder. TECHNIQUE: Multiple real-time grayscale images were obtained over the right upper quadrant in various projections. INDICATION: Right upper quadrant pain and tenderness. Chest pain. FINDINGS: The pancreas is largely obscured. The liver is fairly homogeneous with no focal lesion seen. There is hepatopetal flow in the portal vein. Multiple stones are seen in the gallbladder with no wall thickening or pericholecystic fluid. Sonographic Anaya sign is reportedly negative, however. The CBD is obscured by bowel gas. The right kidney is 8.9 cm in length. No fluid collection in the upper right abdomen seen. IMPRESSION: Cholelithiasis. No pericholecystic fluid or gallbladder wall thickening to suggest acute cholecystitis. Sonographic Anaya sign is reportedly positive, however. Correlate clinically. Dictated by: Dictated on workstation # [id number] Dict: 05/30/17 1522 Trans: 05/30/17 1610 Interpreted by: GIANLUCA MYLES MD Electronically signed by: GIANLUCA MYLES MD 05/30/17 161 Departure Impression Impression: Primary Impression: Cholelithiasis Qualified Codes: K80.20 - Calculus of gallbladder without cholecystitis without obstruction Additional Impressions: Atypical chest pain Nausea Diarrhea Qualified Codes: R19.7 - Diarrhea, unspecified Chronic renal failure Qualified Codes: N18.9 - Chronic kidney disease, unspecified Disposition: 01 HOME, SELF-CARE Condition: Improved Departure-Patient Inst. Decision time for Depature: 16:25 Referrals: JAIMIE NEELY MD (PCP/Family) Primary Care Physician Patient Instructions: Chest Pain That Is Not Caused by the Heart (DC), Gallstones Add. Discharge Instructions: Eat small meals and eat a very low-fat diet. Use Zofran (ondansetron) as prescribed for nausea and vomiting. Drink plenty of water. Follow-up with Dr. Neely at 11:00 tomorrow morning. Return to the ER if you have worsening symptoms. All discharge instructions reviewed with patient and/or family. Voiced understanding. Scripts Ondansetron (Zofran Odt) 4 Mg Tab.rapdis 4 MG SL Q4H Y for NAUSEA/VOMITING-1ST LINE, #10 TAB Prov: EDMUND BARKER MD 05/30/17 Copy Copies To 1: JAIMIE NEELY MD, JOSHUA T MD May 30, 2017 13:43
[2017-05-30 13:56] LABS: BASOPHILS # (AUTO) 0.1 10^3/uL (0.0-0.1); BASOPHILS % (AUTO) 1 % (0-10); EOSINOPHILS # (AUTO) 0.3 10^3/uL (0.0-0.3); EOSINOPHILS % (AUTO) 4 % (0-10); LYMPHOCYTES # (AUTO) 2.7 X 10^3 (1.0-4.0); LYMPHOCYTES % (AUTO) 29 % (12-44); MEAN CORPUSCULAR HEMOGLOBIN 28 PG (25-34); MEAN CORPUSCULAR HGB CONC 33 G/DL (32-36); MEAN CORPUSCULAR VOLUME 83 FL (80-99); MEAN PLATELET VOLUME 10.4 FL (7.4-10.4); MONOCYTES # (AUTO) 0.7 X 10^3 (0.0-1.0); MONOCYTES % (AUTO) 8 % (0-12); NEUTROPHILS # (AUTO) 5.6 X 10^3 (1.8-7.8); NEUTROPHILS % (AUTO) 59 % (42-75); PLATELET COUNT 263 10^3/uL (130-400); RED BLOOD COUNT 4.25 10^6/uL (4.35-5.85); RED CELL DISTRIBUTION WIDTH 12.7 % (10.0-14.5); WHITE BLOOD COUNT 9.5 10^3/uL (4.3-11.0)
[2017-05-30 14:13] LABS: ALANINE AMINOTRANSFERASE 10 U/L (0-55); ALBUMIN 3.3 GM/DL (3.2-4.5); ANION GAP 9 MMOL/L (5-14); ASPARTATE AMINO TRANSFERASE 13 U/L (5-34); BILIRUBIN,TOTAL 0.2 MG/DL (0.1-1.0); BLOOD UREA NITROGEN 43 MG/DL (7-18); BUN/CREATININE RATIO 28; CALCIUM 9.1 MG/DL (8.5-10.1); CARBON DIOXIDE 27 MMOL/L (21-32); CHLORIDE 104 MMOL/L (98-107); CREATININE SERUM 1.55 MG/DL (0.60-1.30); GFR ESTIMATED 37; GLUCOSE 108 MG/DL (70-105); LIPASE 7 U/L (8-78); POTASSIUM 4.9 MMOL/L (3.6-5.0); SODIUM 140 MMOL/L (135-145); TOTAL PROTEIN 6.4 GM/DL (6.4-8.2)
[2017-05-30 14:19] LABS: TROPONIN I < 0.30 NG/ML (<0.30)
--- NOTE | 2017-05-30 14:32 | Diagnostic Imaging Report ---
INDICATION: Chest pain, chills and diarrhea PA and lateral views of the chest are obtained. COMPARISON: No previous study is available for comparison at this time. FINDINGS: Heart size and pulmonary vasculature are within normal limits, and the lungs are clear, bilaterally. IMPRESSION: Unremarkable chest. Dictated by: Dictated on workstation # [id number]
[2017-05-30 14:56] LABS: BILIRUBIN,URINE NEGATIVE (NEGATIVE); KETONES,URINE NEGATIVE (NEGATIVE); LEUKOCYTE ESTERASE ,URINE 1+ (NEGATIVE); NITRITE,URINE NEGATIVE (NEGATIVE); PH,URINE 8 (5-9); PROTEIN,URINE 3+ (NEGATIVE); UROBILINOGEN,URINE NORMAL (NORMAL)
--- NOTE | 2017-05-30 15:37 | Diagnostic Imaging Report ---
PROCEDURE: US Gallbladder. TECHNIQUE: Multiple real-time grayscale images were obtained over the right upper quadrant in various projections. INDICATION: Right upper quadrant pain and tenderness. Chest pain. FINDINGS: The pancreas is largely obscured. The liver is fairly homogeneous with no focal lesion seen. There is hepatopetal flow in the portal vein. Multiple stones are seen in the gallbladder with no wall thickening or pericholecystic fluid. Sonographic Anaya sign is reportedly negative, however. The CBD is obscured by bowel gas. The right kidney is 8.9 cm in length. No fluid collection in the upper right abdomen seen. IMPRESSION: Cholelithiasis. No pericholecystic fluid or gallbladder wall thickening to suggest acute cholecystitis. Sonographic Anaya sign is reportedly positive, however. Correlate clinically. Dictated by: Dictated on workstation # [id number]
[2017-05-30] MEDS ORDERED: ONDA4TAB8 SL (16:31)
[2017-05-30 16:37] VITALS: BP 133/85
== END 2017-05-30 16:37 | disposition home or self-care (01) ==
LOC: EDUNIT# 12:35 → ER 12:37
DX: K80.20 Calculus of gallbladder without cholecystitis without obstruction (principal); R07.89 Other chest pain; E11.22 Type 2 diabetes mellitus with diabetic chronic kidney disease; I12.9 Hypertensive chronic kidney disease with stage 1 through stage 4 chronic kidney disease, or unspecified chronic kidney disease; N18.9 Chronic kidney disease, unspecified; G40.909 Epilepsy, unspecified, not intractable, without status epilepticus; Z79.4 Long term (current) use of insulin; Z86.73 Personal history of transient ischemic attack (TIA), and cerebral infarction without residual deficits
CPT/HCPCS: 36415; 71020; 76705; 80053; 80306; 81000; 83690; 84484; 84703; 85025; 85379; 93005; 93041; 96374